=== PATIENT | female | born 1990 | race Caucasian/White ===

== ENCOUNTER 2021-06-25 13:13 | Emergency (ER) | payer MEDICAID ==
[~2021-06-25] VITALS: Ht 147.3 cm; Wt 70.8 kg
[2021-06-25 13:20] VITALS: BP 95/65
--- NOTE | 2021-06-25 13:30 | NUR ---
PAPO ISABEL AT PT BEDSIDE
[2021-06-25] MEDS ORDERED: ACETAMINOPHEN EXTRA STRENGTH 500 MG TAB PO ONE (13:35)
[2021-06-25] MEDS ORDERED: BACITRACIN OINT 500 UNITS/GM PKT TP ONE (13:35)
[2021-06-25] MEDS ORDERED: IBUPROFEN 600 MG TAB PO ONE (13:35)
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
[2021-06-25] MEDS ORDERED: BACO TP (14:20)
[2021-06-25] MEDS ORDERED: ACET-10509 PO (14:20)
[2021-06-25] MEDS ORDERED: IBUP-2213 PO (14:20)
--- NOTE | 2021-06-25 14:50 | NUR ---
Patient discharged with v/s stable. Written and verbal after care instructions given and explained. Patient alert, oriented and verbalized understanding of instructions. Ambulatory with steady gait. All questions addressed prior to discharge. ID band removed. Patient advised to follow up with PMD. Rx of ACETAMINOPHEN, BACITRACIN, IBUPROFEN given. Patient educated on indication of medication including possible reaction and side effects. Opportunity to ask questions provided and answered.
[2021-06-25 16:46] VITALS: BP 95/65
== END 2021-06-25 14:50 | disposition home or self-care (01) ==
LOC: MED 13:13
DX: T21.02XA Burn of unspecified degree of abdominal wall, initial encounter (principal); Z79.899 Other long term (current) drug therapy; X19.XXXA Contact with other heat and hot substances, initial encounter; Y93.89 Activity, other specified; Y92.89 Other specified places as the place of occurrence of the external cause; Y99.8 Other external cause status
CPT/HCPCS: 99284